=== PATIENT | female | born 1950 | race Caucasian/White ===

== ENCOUNTER 2018-01-22 07:21 | Day surgery (SDC) | payer OTHER ==
[2018-01-21 10:19] VITALS: BMI 27.8
[2018-01-22 14:45] VITALS: TEMP 98
[2018-01-22 16:09] VITALS: BP 119/60; PULSE 60
--- NOTE | 2018-02-07 10:42 | PATH ---
Surgical Pathology Report Patient Name: FARZANA DAO [facility]. Rec. #: [id number] /Age/Gender: 1950 (Age: 67) / F Account: [id number] Location: Taken: 01/22/2018 Received: 01/22/2018 Reported: 02/07/2018 Physicians: Fay Clarke M.D. Specimen(s) Received RENAL BIOPSY RIGHT Clinical History 67-year-old female with essential hypertension and proteinuria Intraoperative Consult Diagnosis Renal biopsy: Glomeruli present. Addie Patiño M.D., 01/22/18 Final Diagnosis KIDNEY, BIOPSY: 1. ATYPICAL MEMBRANOUS NEPHROPATHY, WITH IgG3 LAMBDA DEPOSITS AND MICROSPHERULAR SUBSTRUCTURE. See comment. 2. TUBULAR ATROPHY AND INTERSTITIAL FIBROSIS, MILD 3. ARTERIOLOSCLEROSIS, MILD Comment: The immunofluorescence findings support a diagnosis membranous nephropathy with IgG3 lambda deposits. Clinical correlation with hematologic studies, to rule out an underlying B cell neoplasm, is recommended. The significance of the microspherular substructure is uncertain; in cases of idiopathic membranous glomerulopathy, this rare finding has no diagnostic or prognostic implications. (See: Kana Oleary and Angelito CE: Membranous glomerulopathy with spherules: an uncommon variant with obscure pathogenesis. Am J Kid Dis 47:983-992, 2006). Of note, the negative PLA2R immunostain provides evidence against primary membranous nephropathy. Case sent for consultation to Dr. Chiki Juarez from [place], [place] ([id number]), the diagnosis above reflects his opinion. See complete report ([id number]) from [place], [place] for additional details. Electronically Signed Efrain Villavicencio M.D. Gross Description Received in saline labeled "renal biopsy right," is a 0.6 cm in length x 0.1 cm in diameter rodirguez, cylindrical portion of soft tissue. The specimen is divided, placed into 10% buffered formalin, Alvarez fixative and glutaraldehyde. The specimen is sent to [facility] for further studies. DL/01/22/2018 saudi/01/22/2018
== END 2018-01-22 15:00 | disposition home or self-care (01) ==
LOC: JRADIR 07:21
PROVIDERS: ATTEND Internal Medicine Nephrology
PROC: 0RBJ4ZZ Excision of Right Shoulder Joint, Percutaneous Endoscopic Approach (ICD-10-PCS; principal; 2018-01-22)
DX: M75.41 Impingement syndrome of right shoulder (principal); M75.51 Bursitis of right shoulder
CPT/HCPCS: 50200; 76098-TC-FY; 76942-TC; 87899

== ENCOUNTER 2020-04-11 07:45 | Emergency (ER) | payer OTHER ==
[2020-04-11 07:53] VITALS: BP 150/73; PULSE 63; TEMP 98; BMI 25.8
--- NOTE | 2020-04-11 07:54 | PDOC ---
Rapid Medical Evaluation Medical Evaluation: Allergies Allergy/AdvReac Type Severity Reaction Status Date / Time carbamazepine [From Tegretol] Allergy Verified 01/21/18 10:12 levofloxacin [From Levaquin] Allergy Verified 01/21/18 10:12 Sulfa (Sulfonamide Allergy Rash Verified 01/21/18 10:12 Antibiotics) 04/11/20 07:52 69 yo F h/o HTN, RHD c/o L wrist injury s/p mechanical trip and fall this am. denies taking pain meds today, denies any other injuries or complaints. VSS L wrist swelling A/P: L wrist injury L wrist xray Discharge Disposition - Referrals Referrals: Nacho Smalls MD [Primary Care Provider] - - Patient Instructions - Post Discharge Activity
--- NOTE | 2020-04-11 08:35 | PDOC ---
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 States mechanical fall happened 1 hour ago, foot caught on floor, pt fell to knee with outstretched arms. Pain is 4/10, worse with movement, radiating to thumb. Reports bruising to R wrist, but denies pain. Denies f/c, chest pain, SOB, loss of consciousness, head injury. PCP: Slim PMH: HTN Meds: valsartan, Coreg, HCTZ, norvasc All: levaquin, sulfa, carbamazepine Social: denies tobacco, etoh, illicit drug use Past History - Medical History Allergies/Adverse Reactions: Allergies Allergy/AdvReac Type Severity Reaction Status Date / Time carbamazepine [From Tegretol] Allergy Verified 04/11/20 07:53 levofloxacin [From Levaquin] Allergy Verified 04/11/20 07:53 Sulfa (Sulfonamide Allergy Rash Verified 04/11/20 07:53 Antibiotics) Home Medications: Ambulatory Orders Nebivolol HCl [Bystolic] 10 mg PO DAILY 08/24/15 Amlodipine Besylate 5 mg PO DAILY 01/21/18 Cholecalciferol (Vitamin D3) [Vitamin D3] 1,000 unit PO DAILY 01/21/18 Valsartan/Hydrochlorothiazide [Valsartan-Hctz 80-12.5 mg Tab] 1 each PO DAILY 01/21/18 Alprazolam [Xanax Xr] 2.5 mg PO ONCE 01/22/18 COPD: No HTN: Yes Hypercholesterolemia: Yes - Immunization History Immunization Up to Date: Yes - Psycho-Social/Smoking History Smoking History: Never smoked Have you smoked in the past 12 months: No Information on smoking cessation initiated: No - Substance Abuse Hx (Audit-C & DAST Scrn) How often the patient has a drink containing alcohol: Never Score: In Men: 4 or > Positive; In Women: 3 or > Positive: 0 Screen Result (Pos requires Nsg. Audit-10AR): Negative Review of Systems - Review of Systems Comments:: CONSTITUTIONAL:denies fever, chills, generalized weakness CARDIOVASCULAR:denies chest pain, palpitations, lightheadedness RESPIRATORY:denies cough, shortness of breath, wheezing GASTROINTESTINAL: denies abdominal pain, nausea, vomiting, diarrhea, constipation MUSCULOSKELETAL:Reports L wrist pain; denies myalgia, arthralgia HEMATOLOGIC/IMMUNOLOGIC:denies easy bleeding, easy bruising NEUROLOGIC:denies headache, loss of consciousness, focal weakness or paresthesias, dizziness, unsteady gait *Physical Exam - Vital Signs Last Vital Signs Temp Pulse Resp BP Pulse Ox 98.0 F 63 17 150/73 99 04/11/20 07:50 04/11/20 07:50 04/11/20 07:50 04/11/20 07:50 04/11/20 07:50 - Physical Exam General: awake, alert, in no acute distress Head: normocephalic, atraumatic Lung: equal breath sounds b/l, CTA b/l, no crackles, wheezes; no distress, speaks full sentences Heart: RRR, normal S1, S2, no murmurs, rubs, gallops Extremities: tenderness to palpation over scaphoid, normal ROM, no edema, no erythema, radial pulses 2+ and symmetric, no clubbing, cyanosis Skin: warm, dry, no rashes or lesions noted Medical Decision Making - Medical Decision Making Ms. Chandler is a 69yo F with a PMH HTN who presents with L wrist pain following mechanical fall. Vital Signs Period Temp Pulse Resp BP Sys/Tay Pulse Ox Last 24 Hr 98.0 F 63 17 150/73 99 DDx: scaphoid fracture, soft tissue injury Plan: wrist xray Xray: no sign of fracture or subluxation and no sign of blastic or lytic changes. There are some arthritic findings daily at the base of the first metacarpal. Given TTP over anatomic snuffbox, placed patient in wrist splint, with referral for orthopedic follow up and directions to schedule repeat xray in 7-10 days. Disposition Discharge Discharge - Discharge Information Problems reviewed: Yes Clinical Impression/Diagnosis: Wrist pain, Fall Condition: Stable Disposition: HOME - Follow up/Referral Referrals: Nacho Smalls MD [Primary Care Provider] - Bolivar Ramos DO [Staff Physician] - - Patient Discharge Instructions Patient Printed Discharge Instructions: DI for Wrist Pain Additional Instructions: You came into the ER left wrist pain after fall. In the ED, you were evaluated with wrist xray and physical exam. Your xray was normal. You were given a referral to orthopedics. Follow up within 7-10 days for a repeat xray. Call today to schedule your appointment. Come back to the ER immediately with any new or worsening concerns. Thank you for coming to the [facility] ER. We hope you feel better soon! - Post Discharge Activity Work/Back to School Note: Back to Work
--- NOTE | 2020-04-11 09:08 | PDOC ---
Attending Attestation - Resident Resident Name: Randi Tatum - ED Attending Attestation I have performed the following: I have examined & evaluated the patient, The case was reviewed & discussed with the resident, I agree w/resident's findings & plan, Exceptions are as noted - HPI HPI: 04/11/20 08:58 Agree with resident HPI - Physicial Exam PE: 04/11/20 08:58 GENERAL: Awake, alert, and fully oriented, in no acute distress HEAD: No signs of trauma EYES: PERRLA, EOMI, sclera anicteric, conjunctiva clear ENT: Oropharynx clear without exudates. Moist mucosa NECK: Normal ROM, supple, no lymphadenopathy, JVD, or masses LUNGS: Breath sounds equal, clear to auscultation bilaterally. No wheezes, and no crackles HEART: Regular rate and rhythm, normal S1 and S2, no murmurs, rubs or gallops ABDOMEN: Soft, nontender, normoactive bowel sounds. No guarding, no rebound. No masses EXTREMITIES: L wrist with ttp over scaphoid area. No edema or deformities. Normal strength flexion and extension at the wrist. Able to give thumbs up, okay sign, adduct + abduct thumb and abduct fngers against resistence. Normal sensation distally in all fingers. 2+ radial pulses NEUROLOGICAL: Normal speech, cranial nerves intact, equal strength and sensation b/l SKIN: Warm, Dry, normal turgor, no rashes or lesions noted. - Medical Decision Making 04/11/20 09:08 69yo F presents to the ED with L wrist pain s/p mechanical pain Vitals unremarkable Exam with scaphoid ttp, no deformities. LUE NVI X-ray negative for acute fracture L wrist placed in splint, pt to f/u in 7-10 days with ortho for rpt x-ray [place] well controlled Pt clinically stable for DC home I discussed the physical exam findings, ancillary test results and final diagnoses with the patient. I answered all of the patient's questions. The patient was satisfied with the care received and felt comfortable with the discharge plan and treatment plan. The patient will call their primary care physician within 24 hours to arrange follow-up and will return to the Emergency Department with any new, persistent or worsening symptoms. Discharge - Discharge Information Problems reviewed: Yes Clinical Impression/Diagnosis: Wrist pain, Fall Condition: Stable Disposition: HOME - Follow up/Referral Referrals: Nacho Smalls MD [Primary Care Provider] - Bolivar Ramos DO [Staff Physician] - - Patient Discharge Instructions Patient Printed Discharge Instructions: DI for Wrist Pain Additional Instructions: You came into the ER left wrist pain after fall. In the ED, you were evaluated with wrist xray and physical exam. Your xray was normal. You were given a referral to orthopedics. Follow up within 7-10 days for a repeat xray. Call today to schedule your appointment. Come back to the ER immediately with any new or worsening concerns. Thank you for coming to the [facility] ER. We hope you feel better soon! - Post Discharge Activity Work/Back to School Note: Back to Work
== END 2020-04-11 10:35 | disposition home or self-care (01) ==
LOC: JER 07:45 → JERFT 07:45
DX: M25.532 Pain in left wrist (principal)
CPT/HCPCS: 73110-TC-LT-FY; 99283-25